=== PATIENT | male | born 1950 | race Caucasian/White ===

== ENCOUNTER 2023-04-08 10:39 | Outpatient (OUT) | payer MEDICARE, OTHER, SELFPAY ==
[2023-04-08 11:16] LABS: Basophils Percent Auto 0.3 % (0.2-2.0); Eosinophils Absolute Auto 0.2 10^3/uL (0.0-0.7); Eosinophils Percent Auto 2.6 % (0.9-7.0); Hematocrit 35.8 % (42.0-54.0); Hemoglobin 12.6 g/dL (14.0-18.0); Immature Granulocytes Abs Auto 0.02 10^3/uL (0.00-0.03); Immature Granulocytes Pct Auto 0.3 % (0.0-0.5); Lymphocytes Absolute Auto 1.6 10^3/uL (1.2-3.8); Lymphocytes Percent Auto 23.1 % (20.5-60.0); Mean Corpuscular HGB Conc 35.2 g/dL (29.9-35.2); Mean Corpuscular Hemoglobin 36.7 pg (25.9-34.0); Mean Corpuscular Volume 104.4 fL (80.0-94.0); Mean Platelet Volume 11.6 fL (9.5-13.5); Monocytes Absolute Auto 0.7 10^3/uL (0.3-0.8); Neutrophils Absolute Auto 4.3 10^3/uL (1.4-6.5); Neutrophils Percent Auto 63.7 % (43.0-75.0); Platelet Count 78 10^3/uL (150-450); Red Blood Count 3.43 10^6/uL (4.70-6.10); Red Cell Distribution Width 12.5 % (11.0-15.0); White Blood Count 6.8 10^3/uL (4.0-11.0)
== END 2023-04-08 10:40 | disposition home or self-care (01) ==
LOC: LAB 10:43
PROVIDERS: PCP Family Medicine; Visit Provider Family Medicine
DX: D69.6 Thrombocytopenia, unspecified (principal)
CPT/HCPCS: 36415; 85025

== ENCOUNTER 2023-04-15 09:34 | Outpatient (RCR) | payer MEDICARE, SELFPAY ==
[2023-04-15 11:55] LABS: Basophils Percent Auto 0.4 % (0.2-2.0); Eosinophils Absolute Auto 0.2 10^3/uL (0.0-0.7); Eosinophils Percent Auto 2.4 % (0.9-7.0); Hematocrit 40.4 % (42.0-54.0); Immature Granulocytes Abs Auto 0.03 10^3/uL (0.00-0.03); Immature Granulocytes Pct Auto 0.4 % (0.0-0.5); Lymphocytes Absolute Auto 1.6 10^3/uL (1.2-3.8); Lymphocytes Percent Auto 21.2 % (20.5-60.0); Mean Corpuscular HGB Conc 34.7 g/dL (29.9-35.2); Mean Corpuscular Hemoglobin 36.4 pg (25.9-34.0); Mean Corpuscular Volume 104.9 fL (80.0-94.0); Mean Platelet Volume 11.1 fL (9.5-13.5); Monocytes Absolute Auto 0.6 10^3/uL (0.3-0.8); Monocytes Percent Auto 7.7 % (1.7-12.0); Neutrophils Percent Auto 67.9 % (43.0-75.0); Platelet Count 83 10^3/uL (150-450); Red Blood Count 3.85 10^6/uL (4.70-6.10); Red Cell Distribution Width 12.5 % (11.0-15.0); White Blood Count 7.4 10^3/uL (4.0-11.0)
[2023-04-15 12:09] LABS: Lactate Dehydrogenase 221 U/L (85-227)
[2023-04-16 15:09] LABS: Immunoglobulin A, Qn, Serum 223 mg/dL (61-437); Immunoglobulin G, Qn, Serum 992 mg/dL (603-1613); Immunoglobulin M, Qn, Serum 258 mg/dL (20-172)
== END 2023-05-01 23:59 | disposition home or self-care (01) ==
LOC: INF 09:34
PROVIDERS: PCP Family Medicine; Visit Provider Internal Medicine Hematology & Oncology
DX: D64.9 Anemia, unspecified (principal); F17.210 Nicotine dependence, cigarettes, uncomplicated; D69.6 Thrombocytopenia, unspecified
CPT/HCPCS: 36415; 82607; 82746; 82784; 83521; 83615; 85025; 86334; G0463

== ENCOUNTER 2023-05-06 07:42 | Outpatient (RCR) | payer MEDICARE, OTHER, SELFPAY | END 2023-05-06 15:30 | disposition home or self-care (01) | LOC: INF 07:42 | PROVIDERS: PCP Family Medicine; Visit Provider Internal Medicine Hematology & Oncology | DX: D64.9 Anemia, unspecified (principal); D69.6 Thrombocytopenia, unspecified | CPT/HCPCS: G0463 ==